=== PATIENT | male | born 1955 | race Caucasian/White ===

== ENCOUNTER → 2020-06-14 | Outpatient (CLI) | payer MEDICAID ==
[~2020-06-14] MED LIST: AMLO10TA8 PO; BP Med PO; GABA300C PO; LOSA100T14 PO
[2020-06-14 15:12] LABS: INTERNATIONAL NORMALIZED RATIO 0.97 (0.93-1.1)
[2020-06-14 15:14] LABS: ALANINE AMINOTRANSFERASE 43 U/L (12-78); ALBUMIN 4.1 g/dL (3.4-5.0); ANION GAP 6 mmol/L (5-15); CALCIUM 8.9 mg/dL (8.5-10.1); CHLORIDE 107 mmol/L (98-107); CREATININE 0.99 mg/dL (0.7-1.3)
[2020-06-14 15:17] LABS: ALKALINE PHOSPHATASE 77 U/L (45-117); TOTAL PROTEIN 7.2 g/dL (6.4-8.2)
[2020-06-14 15:28] LABS: BASOPHILS # (AUTO) 0.06 x10^3/uL (0-0.1); BASOPHILS % (AUTO) 1 % (0-1); EOSINOPHILS # (AUTO) 0.58 x10^3/uL (0-0.4); EOSINOPHILS % (AUTO) 11 % (1-7); LYMPHOCYTES % (AUTO) 39 % (22-44); MD NO; MEAN CORPUSCULAR HEMOGLOBIN 31.3 pg (27.5-34.5); MEAN CORPUSCULAR HGB CONC 33.9 g/dL (33.2-36.2); MEAN CORPUSCULAR VOLUME 92.4 fL (81-97); MEAN PLATELET VOLUME 8.8 fL (7.4-10.4); MONOCYTES # (AUTO) 0.39 x10^3/uL (0.2-0.8); MONOCYTES % (AUTO) 7 % (2-9); NEUTROPHILS # (AUTO) 2.29 x10^3/uL (1.8-6.8); NEUTROPHILS % (AUTO) 42 % (42-75); PLATELET COUNT 255 x10^3/uL (130-400); RED BLOOD COUNT 5.13 x10^6/uL (4.38-5.82); RED CELL DISTRIBUTION WIDTH 13.9 % (9.4-14.8)
== END | disposition home or self-care (01) ==
LOC: STAR 13:10
PROVIDERS: ATTEND Neurological Surgery
DX: Z01.818 Encounter for other preprocedural examination (principal); M48.02 Spinal stenosis, cervical region; R94.31 Abnormal electrocardiogram [ECG] [EKG]
CPT/HCPCS: 36415; 71046; 80053; 85025; 85610; 85730; 93005

== ENCOUNTER 2020-06-22 07:30 | Inpatient (IN) | payer MEDICAID ==
[~2020-06-22] VITALS: Ht 177.8 cm; Wt 106.3 kg
[~2020-06-22 07:30] MED LIST changes: +BACITRACIN 50,000 UNIT ONE; +BACITRACIN OINT 500U/GM, 15 GM ONE; +BUPIVACAINE/EPI 0.5% 1:200K ONE; +THROMBIN 20,000 UNIT VIAL TP ONE; +VANCOMYCIN 1,000 MG ONE
[2020-06-22] MEDS ORDERED: FENTANYL PF 100 MCG/2ML ONE ×3 (08:02→11:45)
[2020-06-22] MEDS ORDERED: MIDAZOLAM 1 MG/ML, 2ML ONE (08:02)
[2020-06-22 08:08] VITALS: BP 142/90
[2020-06-22] MEDS ORDERED: CARV6.2512 PO (08:13)
[2020-06-22] MEDS ORDERED: UMEC62.5 INH (08:13)
[2020-06-22] MEDS ORDERED: LACTATED RINGERS 1,000 ML IV SCH (08:19)
[2020-06-22] MEDS ORDERED: CHLORHEXIDINE 15 ML UDC ONE (08:22)
[2020-06-22] MEDS ORDERED: CHLORHEXIDINE 15 ML UDC MM ONE (08:30)
[2020-06-22] MEDS ORDERED: REMIFENTANIL 2 MG ONE (09:32)
[2020-06-22] MEDS ORDERED: EPHEDRINE 50 MG/ML, 1ML ONE (10:28)
[2020-06-22] MEDS ORDERED: DEXAMETHASONE 4 MG/ML, 1ML ONE (10:28)
[2020-06-22] MEDS ORDERED: PROPOFOL 10 MG/ML, 20ML ONE (10:28)
[2020-06-22] MEDS ORDERED: CEFAZOLIN 1,000 MG ONE (10:28)
[2020-06-22] MEDS ORDERED: GLYCOPYRROLATE 0.2MG/1ML, 5ML ONE (10:28)
[2020-06-22] MEDS ORDERED: ROCURONIUM 10MG/ML,5ML ONE (10:28)
[2020-06-22] MEDS ORDERED: SUCCINYLCHOLINE 20 MG/ML, 10ML ONE (10:29)
[2020-06-22] MEDS ORDERED: ONDANSETRON 2MG/ML, 2ML ONE (10:29)
[2020-06-22] MEDS ORDERED: NEOSTIGMINE 1 MG/ML, 10ML ONE (10:29)
[2020-06-22] MEDS ORDERED: LIDOCAINE-MPF 2% ,5ML ONE (10:48)
[2020-06-22] MEDS ORDERED: ACETAMINOPHEN 325 MG TABLET PO PRN (11:30)
[2020-06-22] MEDS ORDERED: PROMETHAZINE 25 MG/ML, 1ML IVPush PRN (11:30)
[2020-06-22] MEDS ORDERED: PROMETHAZINE 25 MG SUPP PR PRN (11:30)
[2020-06-22] MEDS ORDERED: METHOCARBAMOL 1,000 MG in DEXTROSE 5% 100 ML IV PRN (11:30)
[2020-06-22] MEDS ORDERED: LORazepam 2 MG/ML, 1ML IVPush PRN (11:30)
[2020-06-22] MEDS ORDERED: OXYcodone 5 MG/5 ML ORAL.SOL UDC PO PRN (11:30)
[2020-06-22] MEDS ORDERED: ONDANSETRON 2MG/ML, 2ML IVPush PRN (11:30)
[2020-06-22] MEDS ORDERED: MEPERIDINE/PF 25MG/0.5ML IVPush PRN (11:30)
[2020-06-22] MEDS ORDERED: morphine SULFATE 10 MG/ML, 1ML ONE ×2 (11:31→11:45)
[2020-06-22] MEDS: FENTANYL PF 100 MCG/2ML IV PRN ×3 (11:35→11:46)
[2020-06-22] MEDS: morphine SULFATE 10 MG/ML, 1ML IVPush PRN ×3 (11:40→11:52)
[2020-06-22] MEDS ORDERED: LORazepam 2 MG/ML, 1ML ONE (11:45)
[2020-06-22] MEDS ORDERED: hydrALAzine 20 MG/ML, 1ML ONE (12:17)
[2020-06-22] MEDS ORDERED: LABETALOL 5MG/ML, 20ML IV PRN (12:30)
[2020-06-22] MEDS ORDERED: hydrALAzine 20 MG/ML, 1ML IV PRN (12:30)
[2020-06-22 13:00] VITALS: BP 138/81
[2020-06-22] MEDS ORDERED: PROMETHAZINE 25 MG/ML, 1ML IM PRN (15:00)
[2020-06-22] MEDS ORDERED: ACETAMINOPHEN 500 MG TABLET PO PRN (15:00)
[2020-06-22] MEDS ORDERED: DIPHENHYDRAMINE 50 MG/ML, 1ML IVPush PRN (15:00)
[2020-06-22] MEDS ORDERED: DIPHENHYDRAMINE 50 MG/ML, 1ML IM PRN (15:00)
[2020-06-22] MEDS ORDERED: BISACODYL 10 MG SUPP PR PRN (15:00)
[2020-06-22] MEDS ORDERED: HYDROcodone/APAP 10/325 MG TABLET PO PRN (15:00)
[2020-06-22] MEDS ORDERED: MAGNESIUM HYDROXIDE 8%, 30ML UDC PO PRN (15:00)
[2020-06-22] MEDS ORDERED: METHOCARBAMOL 1,000 MG in DEXTROSE 5% 100 ML IV ONE ×2 (15:00→20:00)
[2020-06-22] MEDS ORDERED: ACETAMINOPHEN 650 MG SUPP PR PRN (15:00)
[2020-06-22] MEDS ORDERED: HYDROcodone/APAP 5/325 TABLET PO PRN (15:00)
[2020-06-22] MEDS ORDERED: ONDANSETRON 2MG/ML, 2ML IV PRN (15:00)
[2020-06-22] MEDS ORDERED: DIPHENHYDRAMINE 25 MG CAPSULE PO PRN (15:00)
[2020-06-22] MEDS ORDERED: OXYcodone IR 5MG TABLET PO PRN (15:00)
[2020-06-22] MEDS ORDERED: morphine SULFATE 10 MG/ML, 1ML IV PRN (15:30)
[2020-06-22] MEDS: CARVEDILOL 6.25 MG TABLET PO SCH (17:22)
[2020-06-22] MEDS: GABAPENTIN 300 MG CAPSULE PO SCH ×2 (17:22→22:09)
[2020-06-22] MEDS: DEXAMETHASONE 4 MG TABLET PO SCH ×2 (17:22→23:29)
[2020-06-22] MEDS: CEFAZOLIN PMX 2GM/50ML 50 ML IVPB SCH (17:23)
[2020-06-22] MEDS: NS + 20MEQ KCL 1,000 ML IV SCH (17:23)
[2020-06-22 18:56] VITALS: BP 132/84
[2020-06-22] MEDS: METHOCARBAMOL 750 MG in DEXTROSE 5% 100 ML IV SCH (23:29)
[2020-06-23 00:04] VITALS: BP 133/80
[2020-06-23] MEDS: CEFAZOLIN PMX 2GM/50ML 50 ML IVPB SCH ×2 (02:22→10:22)
[2020-06-23 03:35] VITALS: BP 111/65
[2020-06-23] MEDS: CARVEDILOL 6.25 MG TABLET PO SCH (05:45)
[2020-06-23] MEDS: DEXAMETHASONE 4 MG TABLET PO SCH ×2 (05:46→11:10)
[2020-06-23] MEDS: NS + 20MEQ KCL 1,000 ML IV SCH (05:46)
[2020-06-23 06:56] VITALS: BP 115/67
[2020-06-23] MEDS: METHOCARBAMOL 750 MG in DEXTROSE 5% 100 ML IV SCH (07:42)
[2020-06-23] MEDS: GABAPENTIN 300 MG CAPSULE PO SCH (08:49)
[2020-06-23] MEDS ORDERED: LOSARTAN 50MG TABLET PO SCH (09:00)
[2020-06-23] MEDS ORDERED: SENNA/DOCUSATE TABLET PO SCH (09:00)
[2020-06-23] MEDS ORDERED: AMLODIPINE 10 MG TAB PO SCH (09:00)
[2020-06-23 10:58] VITALS: BP 118/71
[2020-06-24] MEDS ORDERED: METHOCARBAMOL 750 MG TABLET PO SCH (23:00)
== END 2020-06-23 13:30 | disposition home or self-care (01) | DRG 473 ==
LOC: EDSTATUS 07:30 → ORIP 07:36 → 4NE 12:45 → DCLOUNGE 06-23 13:14
PROVIDERS: ADMIT Neurological Surgery; ATTEND Neurological Surgery
PROC: 0RT30ZZ Resection of Cervical Vertebral Disc, Open Approach (ICD-10-PCS; 2020-06-22)
PROC: 01N10ZZ Release Cervical Nerve, Open Approach (ICD-10-PCS; 2020-06-22)
PROC: 4A11X4G Monitoring of Peripheral Nervous Electrical Activity, Intraoperative, External Approach (ICD-10-PCS; 2020-06-22)
PROC: 0RG20A0 Fusion of 2 or more Cervical Vertebral Joints with Interbody Fusion Device, Anterior Approach, Anterior Column, Open Approach (ICD-10-PCS; principal; 2020-06-22 09:30)
DX: M48.02 Spinal stenosis, cervical region (principal); M50.30 Other cervical disc degeneration, unspecified cervical region; Z87.891 Personal history of nicotine dependence; Z88.2 Allergy status to sulfonamides; Z88.8 Allergy status to other drugs, medicaments and biological substances
CPT/HCPCS: 72040; J3490; 95938; 95941; C1713; G0378; J0690; J1100; J2250; J2405; J2704; J2710; J3010; J3370; J3480; C1762; C1889; J0330; J0360; J2270; J2800; J7120